=== PATIENT | male | born 1995 | race Caucasian/White ===

== ENCOUNTER 2020-08-13 23:58 | Emergency (ER) | payer OTHER ==
[~2020-08-13] VITALS: Ht 180.3 cm; Wt 77.1 kg
[2020-08-14] MEDS ORDERED: NACL 0.9% 1,000 ML IV ONE
[2020-08-14 00:02] VITALS: BP 140/100
--- NOTE | 2020-08-14 00:02 | NUR ---
to bed via w/c with mother
--- NOTE | 2020-08-14 00:10 | NUR ---
24 Y/O MALE BIB MOTHER AND FATHER FOR C/O "SHARP" NONRADITING R SIDE ABDOMINAL PAIN 04/17. SINCE THIS EVENING PER MOTHER PT TOOK IBUPROFEN 600 MG PRIOR TO ED VISIT. PT WAS NOTED MOANING AND CRYING, GUARDING AREA. ABDOMEN WAS FLAT, FIRM TO TOUCH. NONTENDER. PT PLACED ON BED LOCKED AND IN LOWEST POSITION. MOTHER AT BEDSIDE. PMHX: CEREBRAL PALSY, AUTISM AND SPEECH DELAY NKA
--- NOTE | 2020-08-14 00:20 | NUR ---
CHIRAG RODRIGUEZ AT BEDSIDE EVALUATING PT.
--- NOTE | 2020-08-14 00:30 | NUR ---
20 G IV SITE ESTABLISHED TO R AC, SITE WAS PATENT. FLUSHED WITH 10 ML OF 0.9% NS. NO REDNESS, DISCOMFORT OR SWELLING. BLOOD DRAW COLLECTED THROUGH SITE.
[2020-08-14 00:44] LABS: BASOPHILS # (AUTO) 0.1 K/uL (0.00-0.22); BASOPHILS % (AUTO) 0.7 % (0.0-2.0); EOSINOPHILS % (AUTO) 0.3 % (0.0-4.0); LYMPHOCYTES # (AUTO) 2.6 K/uL (2.0-11.5); LYMPHOCYTES % (AUTO) 29.2 % (20.5-51.1); MEAN CORPUSCULAR HEMOGLOBIN 30 pg (27-31); MEAN CORPUSCULAR HGB CONC 35 g/dL (33-37); MEAN CORPUSCULAR VOLUME 85.5 fL (80-94); MONOCYTES # (AUTO) 0.7 K/uL (0.8-1.0); MONOCYTES % (AUTO) 8.4 % (1.7-9.3); NEUTROPHILS # (AUTO) 5.4 K/uL (1.8-7.7); NEUTROPHILS % (AUTO) 61.4 % (42.2-75.2); PLATELET COUNT (AUTO) 249 K/uL (140-450); RED BLOOD CELL COUNT(AUTO) 5.38 MIL/uL (4.20-6.10); RED CELL DISTRIBUTION WIDTH 12.6 % (11.6-13.7); WHITE BLOOD COUNT (AUTO) 8.8 K/uL (4.8-10.8)
[2020-08-14] MEDS ORDERED: MORPHINE SULFATE 4 MG/ML SYR IVP ONE ×2 (00:45)
[2020-08-14 00:52] LABS: ALBUMIN 4.7 g/dL (3.4-5.0); ANION GAP 14.8 (8-16); CARBON DIOXIDE 26.7 mmol/L (21-32); CREATININE 1.1 mg/dL (0.6-1.3); POTASSIUM 3.5 mmol/L (3.5-5.1); TOTAL BILIRUBIN 0.7 mg/dL (0.0-1.0)
--- NOTE | 2020-08-14 00:56 | NUR ---
PT TAKEN TO CT VIA W/C.
--- NOTE | 2020-08-14 01:15 | NUR ---
PT RETURNED FROM CT SCAN
--- NOTE | 2020-08-14 01:16 | NUR ---
PT REFUSED MORPHINE ORDERED FOR PAIN, WAS OFFERED X 3. Addendum: 08/14/20 at 0133 by AMAURY CHIRAG VAZQUEZ NOTIFIED GAVE NO NEW ORDERS.
--- NOTE | 2020-08-14 02:48 | NUR ---
PT LAYING IN BED UNABLE TO PROVIDE URINE AT THIS TIME, PT WAS OFFERED URINAL BUT REFUSED. WILL ATTEMPT LATER.
--- NOTE | 2020-08-14 03:25 | NUR ---
PT PROVIDED UA SAMPLE AT THIS TIME. UA DIP PERFORMED.
--- NOTE | 2020-08-14 04:12 | NUR ---
CONSENT SIGNED FOR CT WITH CONTRAST.
--- NOTE | 2020-08-14 06:01 | NUR ---
PT LAYING IN BED IN NO ACUTE DISTRESS NOTED BREATHING EVEN AND UNLABORED BY RISE AND FALL OF CHEST WALL, VSS. DENIES HAVING ANY PAIN OR DISCOMFORT. PT FINIHSED ORAL CONTRAST AT 0500.
--- NOTE | 2020-08-14 06:08 | NUR ---
CALLED CT FOR FOLLOW UP REGARDING CT W/CONTRAST PER STRAND FORMING MACHINE OPERATOR. PT NEEDS TO DIGEST CONTRAST MEDIA AND WILL BE READY AT 0700 FOR PROCEDURE.
--- NOTE | 2020-08-14 06:36 | NUR ---
PT AMBULATED TO THE BATHROOM WITH NO DIFFICULTY.
--- NOTE | 2020-08-14 06:55 | NUR ---
PT TAKEN TO CT VIA W/C ASSIST.
--- NOTE | 2020-08-14 07:11 | NUR ---
REPORT GIVEN TO STERLING RODRIGUEZ FOR CONTINUITY OF CARE.
--- NOTE | 2020-08-14 07:11 | NUR ---
PT RETURNED FROM CT SCAN.
--- NOTE | 2020-08-14 08:23 | NUR ---
UPDATE GIVEN TO DOCTOR JAIRO. WILL BE HERE IN 20 MINUTES
--- NOTE | 2020-08-14 08:48 | NUR ---
DR CASTRO AT BEDSIDE OF PT
--- NOTE | 2020-08-14 08:55 | NUR ---
DR. CASTRO OUT OF ROOM
[2020-08-14] MEDS ORDERED: ONDANSETRON 4 MG/2 ML VIAL IVP ONE ×2 (09:10)
[2020-08-14] MEDS ORDERED: ONDANSETRON 4 MG/2 ML VIAL ONE (09:10)
--- NOTE | 2020-08-14 09:22 | NUR ---
Patient discharged with v/s stable. Written and verbal after care instructions ABOUT ABDOMINAL PAIN (NONSPECIFIC) given and explained. Patient alert, oriented and verbalized understanding of instructions. Wheel Chair Assisted with by parent. All questions addressed prior to discharge. ID band removed. Patient advised to follow up with PMD. Rx of ZOFRAN, NORCO, AND MIRALAX given. Patient educated on indication of medication including possible reaction and side effects. Opportunity to ask questions provided and answered.
[2020-08-14 09:26] VITALS: BP 124/88
== END 2020-08-14 09:25 | disposition home or self-care (01) ==
LOC: MED 23:58
DX: R10.9 Unspecified abdominal pain (principal); R11.2 Nausea with vomiting, unspecified
CPT/HCPCS: 36415; 74176; 74177; 80053; 81002; 83690; 85025; 96361; 96374; 96375; 96376; 99285; J2270; J2405; J7030; Q9967

== ENCOUNTER 2020-08-17 16:11 | Emergency (ER) | payer OTHER ==
[~2020-08-17] VITALS: Ht 180.3 cm; Wt 77.1 kg
[2020-08-17 16:12] VITALS: BP 115/67
[2020-08-17] MEDS ORDERED: NACL 0.9% 1,000 ML IV SCH (16:50)
[2020-08-17] MEDS ORDERED: MORPHINE SULFATE 4 MG/ML SYR IVP ONE (16:50)
--- NOTE | 2020-08-17 16:57 | NUR ---
Pt ambulated to ER bed 5.
--- NOTE | 2020-08-17 17:00 | NUR ---
25 Y/O MALE BIB MOTHER C/O RUQ 02/15 SHARP ABDOMINAL PAIN X 5 DAYS. SEEN HERE 4 DAYS AGO SAME S/S. ABD FLAT, SOFT, NON-TENDER. BOWEL MOVEMENT: LOOSE STOOL X TWICE TODAY. PMH: CEREBRAL PALSY NKA
--- NOTE | 2020-08-17 17:13 | NUR ---
LAB DRAWN AT BEDSIDE, GAVE TO DEVELOPMENT COORDINATOR.
[2020-08-17 17:20] LABS: BASOPHILS % (AUTO) 0.6 % (0.0-2.0); EOSINOPHILS # (AUTO) 0.1 K/uL (0-0.4); HEMATOCRIT 46.3 % (36-52); HEMOGLOBIN 15.9 g/dL (12.0-18.0); LYMPHOCYTES # (AUTO) 2.4 K/uL (2.0-11.5); LYMPHOCYTES % (AUTO) 35.3 % (20.5-51.1); MEAN CORPUSCULAR HEMOGLOBIN 30 pg (27-31); MEAN CORPUSCULAR HGB CONC 34 g/dL (33-37); MONOCYTES # (AUTO) 0.6 K/uL (0.8-1.0); MONOCYTES % (AUTO) 8.9 % (1.7-9.3); NEUTROPHILS # (AUTO) 3.7 K/uL (1.8-7.7); NEUTROPHILS % (AUTO) 54.2 % (42.2-75.2); PLATELET COUNT (AUTO) 270 K/uL (140-450); RED BLOOD CELL COUNT(AUTO) 5.39 MIL/uL (4.20-6.10); RED CELL DISTRIBUTION WIDTH 12.7 % (11.6-13.7); WHITE BLOOD COUNT (AUTO) 6.8 K/uL (4.8-10.8)
[2020-08-17 17:20] LABS: APPEARANCE,URINE CLEAR (CLEAR); BILIRUBIN,URINE NEGATIVE (NEGATIVE); BLOOD, URINE NEGATIVE (NEGATIVE); COLOR,URINE YELLOW (YELLOW); LEUKOCYTE ESTERASE ,URINE NEGATIVE (NEGATIVE); NITRITE, URINE NEGATIVE (NEGATIVE); UGLUCOSE NEGATIVE (NEGATIVE)
--- NOTE | 2020-08-17 17:26 | NUR ---
ANA SANCHEZ AT PT BEDSIDE FOR EKG
[2020-08-17] MEDS ORDERED: ALUMINUM HYD/MAG/SIMETHICONE 30 ML UDC PO ONE (17:55)
[2020-08-17 17:56] LABS: ALBUMIN 4.4 g/dL (3.4-5.0); ANION GAP 13.8 (8-16); CARBON DIOXIDE 27.7 mmol/L (21-32); POTASSIUM 3.5 mmol/L (3.5-5.1); TOTAL BILIRUBIN 0.5 mg/dL (0.0-1.0)
--- NOTE | 2020-08-17 18:06 | NUR ---
PT AMBULATED TO RESTROOM WITH A STEADY GAIT.
--- NOTE | 2020-08-17 18:09 | NUR ---
pt ambulated back to bed. pt reconnected to fluids. pt is comfortable, laying in bed. will continue to monitor
--- NOTE | 2020-08-17 19:12 | NUR ---
GAVE REPORT TO JUAN JOSE HINKLEFER OF CARE AT THIS TIME.
--- NOTE | 2020-08-17 19:15 | NUR ---
RECEIVED TRANSFER OF CARE REPORT FROM LESLYE RODRIGUEZ FOR CONTINUATION OF CARE.
--- NOTE | 2020-08-17 20:15 | NUR ---
ALL RESULTS BACK AND NOTED BY ERMD AND FOR D/C
[2020-08-17 20:40] VITALS: BP 110/74
--- NOTE | 2020-08-17 20:40 | NUR ---
Patient discharged with v/s stable. Written and verbal after care instructions given and explained. Patient verbalized understanding. Ambulatory with steady gait. All questions addressed prior to discharge. Advised to follow up with PMD.
== END 2020-08-17 20:40 | disposition home or self-care (01) ==
LOC: MED 16:11
DX: R10.9 Unspecified abdominal pain (principal); R63.0 Anorexia; R11.0 Nausea
CPT/HCPCS: 36415; 80053; 81003; 82150; 83690; 84484; 85025; 93005; 96361; 96374; 99284; J2270; J7030

== ENCOUNTER 2020-11-03 07:51 | Day surgery (SDC) | payer OTHER, SELFPAY ==
[~2020-11-03] VITALS: Ht 180.3 cm; Wt 74.8 kg
[2020-11-03] MEDS ORDERED: diphenhydrAMINE 50 MG/ML VIAL ONE (10:16)
[2020-11-03] MEDS ORDERED: MIDAZOLAM 5 MG/5 ML VIAL ONE (10:17)
[2020-11-03] MEDS ORDERED: fentaNYL citrate 0.05 MG/ML VIAL ONE (10:17)
[2020-11-03] MEDS ORDERED: LIDOCAINE 2% 100 MG/5 ML UJET TP ONE ×2 (10:17→12:45)
[2020-11-03] MEDS ORDERED: MIDAZOLAM 2 MG/2 ML VIAL IVP ONE (12:45)
[2020-11-03] MEDS ORDERED: diphenhydrAMINE 50 MG/ML VIAL IVP ONE (12:45)
[2020-11-03] MEDS ORDERED: fentaNYL citrate 0.05 MG/ML VIAL IVP ONE (12:45)
== END 2020-11-03 11:30 | disposition home or self-care (01) ==
LOC: MDS 07:51 → MMU 07:52 → MDS 11:30
PROVIDERS: ATTEND Internal Medicine Gastroenterology
DX: K52.9 Noninfective gastroenteritis and colitis, unspecified (principal); Z79.899 Other long term (current) drug therapy
CPT/HCPCS: 45380; 87426; J1200; J2250; J3010; 88305

== ENCOUNTER 2022-06-12 20:39 | Emergency (ER) | payer OTHER ==
[~2022-06-12] VITALS: Ht 177.8 cm; Wt 88.9 kg
[2022-06-12 20:46] VITALS: BP 127/61
--- NOTE | 2022-06-12 20:53 | NUR ---
pt to lobby with urine cup in hand for urine collection to be done later.
[2022-06-12] MEDS ORDERED: KETOROLAC 15 MG/ML VIAL IM ONE (22:50)
[2022-06-12 23:04] LABS: APPEARANCE,URINE CLEAR (CLEAR); BILIRUBIN,URINE NEGATIVE (NEGATIVE); BLOOD, URINE NEGATIVE (NEGATIVE); COLOR,URINE YELLOW (YELLOW); LEUKOCYTE ESTERASE ,URINE NEGATIVE (NEGATIVE); NITRITE, URINE NEGATIVE (NEGATIVE); PH,URINE 8.5 (5.0-9.0); UGLUCOSE NEGATIVE (NEGATIVE)
[2022-06-12 23:07] LABS: BASOPHILS % (AUTO) 0.5 % (0.0-2.0); EOSINOPHILS % (AUTO) 0.1 % (0.0-4.0); HEMATOCRIT 45.2 % (36-52); HEMOGLOBIN 15.6 g/dL (12.0-18.0); LYMPHOCYTES # (AUTO) 0.7 K/uL (2.0-11.5); LYMPHOCYTES % (AUTO) 7.3 % (20.5-51.1); MEAN CORPUSCULAR HEMOGLOBIN 29 pg (27-31); MEAN CORPUSCULAR HGB CONC 34 g/dL (33-37); MEAN CORPUSCULAR VOLUME 85.3 fL (80-94); MONOCYTES % (AUTO) 10.9 % (1.7-9.3); NEUTROPHILS # (AUTO) 7.4 K/uL (1.8-7.7); NEUTROPHILS % (AUTO) 81.2 % (42.2-75.2); PLATELET COUNT (AUTO) 244 K/uL (140-450); RED BLOOD CELL COUNT(AUTO) 5.31 MIL/uL (4.20-6.10); RED CELL DISTRIBUTION WIDTH 13.2 % (11.6-13.7); WHITE BLOOD COUNT (AUTO) 9.2 K/uL (4.8-10.8)
[2022-06-12 23:25] LABS: ALBUMIN 4.3 g/dL (3.4-5.0); ANION GAP 15.1 (8-16); CARBON DIOXIDE 26.7 mmol/L (21-32); CREATININE 1.2 mg/dL (0.6-1.3); POTASSIUM 3.8 mmol/L (3.5-5.1); TOTAL BILIRUBIN 0.8 mg/dL (0.0-1.0)
[2022-06-13] MEDS ORDERED: ACET-10509 PO (00:27)
[2022-06-13] MEDS ORDERED: CLOB0.0525 TP (00:27)
[2022-06-13] MEDS ORDERED: ONDA-188 SL (00:27)
[2022-06-13 00:34] VITALS: BP 97/63
--- NOTE | 2022-06-13 00:34 | NUR ---
Patient discharged with v/s WNL. Written and verbal after care instructions given and explained. Patient alert, oriented and verbalized understanding of instructions. Ambulatory with steady gait. All questions addressed prior to discharge. ID band removed. Patient advised to follow up with PMD. Rx of Tylenol extra strength tab, zofran ODT, and Clobetasol Propionate given. Patient educated on indication of medication including possible reaction and side effects. Opportunity to ask questions provided and answered.
== END 2022-06-13 00:34 | disposition home or self-care (01) ==
LOC: MED 20:39
DX: K52.9 Noninfective gastroenteritis and colitis, unspecified (principal)
CPT/HCPCS: 36415; 74177; 80053; 81003; 83690; 85025; 96372; 99285; J1885; Q9967